=== PATIENT | male | born 1965 | race Caucasian/White ===

== ENCOUNTER 2017-09-27 11:42 | Emergency (ER) | payer MEDICARE, MEDICAID ==
--- NOTE | 2017-09-27 12:48 | ER Document Report ---
ED Medical Screen (RME) - General Chief Complaint: Foot Pain Stated Complaint: LEFT FOOT PAIN Time Seen by Provider: 09/27/17 12:47 Notes: Patient states last week he twisted his left foot and now it is swollen and painful. He states he can walk on it. He also states he has had no appetite now for several months and has lost 35 pounds in the last month. TRAVEL OUTSIDE OF THE [place] IN LAST 30 DAYS: No - Related Data Allergies/Adverse Reactions: No Known Allergies Allergy (Verified 08/08/14 16:37) Past Medical History - Social History Chew tobacco use (# tins/day): No Frequency of alcohol use: None Drug Abuse: None Pulmonary Medical History: Reports: Hx COPD Renal/ Medical History: Denies: Hx Peritoneal Dialysis Musculoskeltal Medical History: Reports Hx Musculoskeletal Trauma - Chronic back pain Psychiatric Medical History: Reports: Hx Depression - Immunizations Immunizations up to date: Yes Hx Diphtheria, Pertussis, Tetanus Vaccination: Yes Physical Exam - Vital signs Vitals: Temp Pulse Resp BP Pulse Ox 98.6 F 92 20 122/78 96 09/27/17 12:19 09/27/17 12:19 09/27/17 12:19 09/27/17 12:19 09/27/17 12:19 Course - Vital Signs Vital signs: Temp Pulse Resp BP Pulse Ox 98.6 F 92 20 122/78 96 09/27/17 12:19 09/27/17 12:19 09/27/17 12:19 09/27/17 12:19 09/27/17 12:19
[2017-09-27 13:21] LABS: ABSOLUTE LYMPHOCYTES (AUTO) 1.1 10^3/uL (0.5-4.7); ABSOLUTE MONOCYTES (AUTO) 0.3 10^3/uL (0.1-1.4); ABSOLUTE NEUT (AUTO) 2.7 10^3/uL (1.7-8.2); BASOPHILS % (AUTO) 0.6 % (0-2); EOSINOPHILS % (AUTO) 0.9 % (0-6); HEMATOCRIT 42.8 % (37.9-51.0); HEMOGLOBIN 14.6 g/dL (13.5-17.0); LYMPHOCYTES % (AUTO) 26.5 % (13-45); MEAN CORPUSCULAR HEMOGLOBIN 30.7 pg (27.0-33.4); MEAN CORPUSCULAR HGB CONC 34.2 g/dL (32.0-36.0); MEAN CORPUSCULAR VOLUME 90 fl (80-97); MONOCYTES % (AUTO) 6.6 % (3-13); PLATELET COUNT 246 10^3/uL (150-450); RED BLOOD COUNT 4.77 10^6/uL (4.35-5.55); RED CELL DISTRIBUTION WIDTH 14.3 % (11.5-14.0); SEGMENTED NEUTROPHILS % (AUTO) 65.4 % (42-78); TOTAL CELLS COUNTED % (AUTO) 100 %; WHITE BLOOD COUNT 4.2 10^3/uL (4.0-10.5)
--- NOTE | 2017-09-27 13:25 | ER Document Report ---
ED General - General Chief Complaint: Foot Pain Stated Complaint: LEFT FOOT PAIN Time Seen by Provider: 09/27/17 12:47 TRAVEL OUTSIDE OF THE [place] IN LAST 30 DAYS: No - HPI Patient complains to provider of: Left foot pain 8/10 sharp in nature without radiation nothing made it libia Onset: Last week Notes: Patient in for evaluation of left foot pain but he also endorses some mild right foot pain and claudication. Daughter at bedside is also concerned because the patient has lost 35 pounds in the last 2 months. Only minor changes to diet since the new year, no regimented exercise pain. Patient is a pack-a-day smoker. Family concerned he may have an underlying malignancy. - Related Data Allergies/Adverse Reactions: No Known Allergies Allergy (Verified 08/08/14 16:37) Past Medical History - Social History Smoking Status: Current Every Day Smoker Chew tobacco use (# tins/day): No Frequency of alcohol use: None Drug Abuse: None Family History: CAD, DM, Hyperlipidemia, Hypertension Patient has suicidal ideation: No Patient has homicidal ideation: No Pulmonary Medical History: Reports: Hx COPD Renal/ Medical History: Denies: Hx Peritoneal Dialysis Musculoskeltal Medical History: Reports Hx Musculoskeletal Trauma - Chronic back pain Psychiatric Medical History: Reports: Hx Depression - Immunizations Immunizations up to date: Yes Hx Diphtheria, Pertussis, Tetanus Vaccination: Yes Review of Systems - Review of Systems Constitutional: No symptoms reported EENT: No symptoms reported Cardiovascular: No symptoms reported Respiratory: No symptoms reported Gastrointestinal: No symptoms reported Genitourinary: No symptoms reported Male Genitourinary: No symptoms reported Musculoskeletal: No symptoms reported, Leg swelling Skin: No symptoms reported Hematologic/Lymphatic: No symptoms reported Neurological/Psychological: No symptoms reported Physical Exam - Vital signs Vitals: Temp Pulse Resp BP Pulse Ox 98.6 F 92 20 122/78 96 09/27/17 12:19 09/27/17 12:19 09/27/17 12:19 09/27/17 12:19 09/27/17 12:19 Interpretation: Normal - General General appearance: Appears well - Cachectic man, Alert - HEENT Head: Normocephalic, Atraumatic Eyes: Normal Pupils: PERRL - Respiratory Respiratory status: No respiratory distress Chest status: Nontender Breath sounds: Normal Chest palpation: Normal - Cardiovascular Rhythm: Regular Heart sounds: Normal auscultation Murmur: No - Abdominal Inspection: Normal Distension: No distension Bowel sounds: Normal Tenderness: Nontender Organomegaly: No organomegaly - Back Back: Normal, Nontender - Extremities General upper extremity: Normal inspection, Nontender, Normal color, Normal ROM , Normal temperature General lower extremity: Normal inspection, Nontender, Normal color, Normal ROM , Normal temperature, Normal weight bearing. No: Star's sign - Neurological Neuro grossly intact: Yes Cognition: Normal Orientation: AAOx4 Luli Coma Scale Eye Opening: Spontaneous Luli Coma Scale Verbal: Oriented Luli Coma Scale Motor: Obeys Commands Luli Coma Scale Total: 15 Speech: Normal Motor strength normal: LUE, RUE, LLE, RLE Sensory: Normal - Psychological Associated symptoms: Normal affect, Normal mood - Skin Skin Temperature: Warm Skin Moisture: Dry Skin Color: Normal Course - Re-evaluation Re-evalutation: 09/27/17 13:34 Patient presents the emergency department reluctantly because his daughter made him. Has some left leg pain/foot pain. Endorses bilateral claudication. Profound weight loss. 09/27/17 14:23 Patient's extensive lab workup unremarkable, x-ray images unremarkable left foot , venous studies showed no occlusive DVT. Patient has brisk triphasic pulses in both feet and confirmed on ultrasound with bedside. Pain well controlled this time. Patient be discharged home follow-up with family doctor for possible referral to oncology and vascular surgeon. - Vital Signs Vital signs: Temp Pulse Resp BP Pulse Ox 98.6 F 92 20 122/78 96 09/27/17 12:19 09/27/17 12:19 09/27/17 12:19 09/27/17 12:19 09/27/17 12:19 - Laboratory Result Diagrams: 09/27/17 12:55 09/27/17 12:55 Laboratory results interpreted by me: 09/27/17 09/27/17 12:55 12:55 RDW 14.3 H Sodium 135.2 L Chloride 91 L Carbon Dioxide 36 H BUN 2 L AST 15 L Alkaline Phosphatase 175 H Discharge - Discharge Clinical Impression: Foot pain, left Condition: Stable Disposition: HOME, SELF-CARE Instructions: Peripheral Vascular Disease ([facility]) Additional Instructions: See your PCP for possible vascular surgeon referral and possible Oncology
--- NOTE | 2017-09-27 13:25 | ER Document Report ---
ED General - General Chief Complaint: Foot Pain Stated Complaint: LEFT FOOT PAIN Time Seen by Provider: 09/27/17 12:47 TRAVEL OUTSIDE OF THE [place] IN LAST 30 DAYS: No - Related Data Allergies/Adverse Reactions: No Known Allergies Allergy (Verified 08/08/14 16:37) Past Medical History - Social History Smoking Status: Current Every Day Smoker Chew tobacco use (# tins/day): No Frequency of alcohol use: None Drug Abuse: None Family History: CAD, DM, Hyperlipidemia, Hypertension Patient has suicidal ideation: No Patient has homicidal ideation: No Pulmonary Medical History: Reports: Hx COPD Renal/ Medical History: Denies: Hx Peritoneal Dialysis Musculoskeltal Medical History: Reports Hx Musculoskeletal Trauma - Chronic back pain Psychiatric Medical History: Reports: Hx Depression - Immunizations Immunizations up to date: Yes Hx Diphtheria, Pertussis, Tetanus Vaccination: Yes Physical Exam - Vital signs Vitals: Temp Pulse Resp BP Pulse Ox 98.6 F 92 20 122/78 96 09/27/17 12:19 09/27/17 12:19 09/27/17 12:19 09/27/17 12:19 09/27/17 12:19 Course - Vital Signs Vital signs: Temp Pulse Resp BP Pulse Ox 98.6 F 92 20 122/78 96 09/27/17 12:19 09/27/17 12:19 09/27/17 12:19 09/27/17 12:19 09/27/17 12:19 - Laboratory Result Diagrams: 09/27/17 12:55 09/27/17 12:55 Laboratory results interpreted by me: 09/27/17 12:55 RDW 14.3 H
[2017-09-27 13:41] LABS: ALANINE AMINOTRANSFERASE 23 U/L (21-72); ALBUMIN 3.9 g/dL (3.5-5.0); ALKALINE PHOSPHATASE 175 U/L (38-126); ANION GAP 8 (5-19); ASPARTATE AMINO TRANSFERASE 15 U/L (17-59); BILIRUBIN,DIRECT 0.3 mg/dL (0.0-0.4); BILIRUBIN,TOTAL 0.3 mg/dL (0.2-1.3); BLOOD UREA NITROGEN 2 mg/dL (7-20); CALCIUM 9.7 mg/dL (8.4-10.2); CARBON DIOXIDE 36 mmol/L (22-30); CHLORIDE 91 mmol/L (98-107); GLUCOSE 90 mg/dL (75-110); SODIUM 135.2 mmol/L (137-145); TOTAL PROTEIN 6.7 g/dL (6.3-8.2)
--- NOTE | 2017-09-27 13:59 | RADIOLOGY REPORT (SQ) ---
EXAM DESCRIPTION: FOOT LEFT COMPLETE COMPLETED DATE/TIME: 09/27/2017 1:18 pm REASON FOR STUDY: pain/swelling COMPARISON: None. NUMBER OF VIEWS: Three views. TECHNIQUE: AP, lateral and oblique radiographic images acquired of the left foot. LIMITATIONS: None. FINDINGS: MINERALIZATION: Normal. BONES: A transverse lucency is identified at the level of the proximal 5th metatarsal consistent with a fracture. There is associated periosteal thickening and the fracture may be at the site of previo us trauma. Clinical correlation is recommended. No other evidence for fracture is seen JOINTS: No effusions. SOFT TISSUES: No soft tissue swelling. No foreign body. OTHER: No other significant finding. IMPRESSION: Transverse lucency at the level of the proximal 5th metatarsal is noted above consistent with a fracture. This may be at the site of previous trauma. Clinical correlation is recommended. Other findings as noted above. TECHNICAL DOCUMENTATION: JOB ID: [id number] [employer]- All Rights Reserved
[2017-09-27] MEDS ORDERED: MORPHINE SULFATE IR 15 MG TABLET PO ONE (14:21)
[2017-09-27 15:09] VITALS: BP 118/78
--- NOTE | 2017-09-28 07:49 | XCELERA REPORT ---
[address] [address] Lower Extremity Venous Evaluation Name: DOROTHY CHRISTY Age: 52 yrs Gender: Male : 1965 Patient Status: Preadmit Patient Location: ER Study Date: 09/27/2017 01:10 PM Procedure: Color flow and duplex imaging of the veins of the left lower extremity as well as the right Common Femoral vein. Reason For Study: left LE swelling/pain Ordering Physician: GLORIA QUICK Performed By: Bre Rizvi Right Sided Venous Evaluation The right common femoral vein is fully compressible. Spontaneous and phasic flow is present in the right common femoral vein. Left Sided Venous Evaluation Normal vessel filling wall to wall, compression and augmentation as well as Colour flow down to the infrageniculate veins. Interpretation Summary No duplex evidence of DVT or obstruction in the left lower extremity nor in the right Common Femoral vein. : GLORIA QUICK > Ubaldo Martinez
== END 2017-09-27 15:08 | disposition home or self-care (01) ==
LOC: ER 11:42
DX: M79.672 Pain in left foot (principal); F17.200 Nicotine dependence, unspecified, uncomplicated
CPT/HCPCS: 99284; 36415; 85025; 80053; 93971 ×2; 73630; A9270